=== PATIENT | male | born 1950 | race Caucasian/White ===

== ENCOUNTER 2018-07-12 10:33 | Day surgery (SDC) | payer MEDICARE, BC ==
[~2018-07-12 10:33] MED LIST: ACETAMINOPHEN 1,000 MG/100 ML BTL IV ONE
[2018-07-12] MEDS ORDERED: MIDAZOLAM HCL 2MG/2ML VIAL IV ONE (10:34)
[2018-07-12] MEDS ORDERED: BUPIVACAINE LIPOSOME/PF 133MG/10ML VIAL IV ONE (10:34)
[2018-07-12] MEDS ORDERED: NALOXONE 0.4 MG/1 ML VIAL IV ONE (10:34)
[2018-07-12] MEDS ORDERED: FENTANYL PF 100MCG/2ML VIAL IV ONE (10:34)
[2018-07-12] MEDS ORDERED: BUPIVACAINE 0.5% (5MG/ML) PF 30ML VIAL IVP ONE (10:34)
[2018-07-12] MEDS ORDERED: EPINEPHRINE 1 MG/ML AMPUL SQ ONE (10:34)
[2018-07-12] MEDS ORDERED: LIDOCAINE 2% MDV (20MG/ML) 20ML VIAL IV ONE (10:34)
[2018-07-12] MEDS ORDERED: ROCURONIUM BROMIDE 50MG/5ML VIAL IV ONE (10:34)
[2018-07-12] MEDS ORDERED: ONDANSETRON HCL IV 4 MG/2 ML VIAL IVP ONE (10:34)
[2018-07-12] MEDS ORDERED: SUCCINYLCHOLINE 20 MG/ML 10ML IVP ONE (10:34)
[2018-07-12] MEDS ORDERED: PROPOFOL 10 MG/ML VIAL IV ONE (10:34)
[2018-07-12] MEDS ORDERED: EPHEDRINE SULFATE 50 MG/ML ML IV ONE (10:34)
[2018-07-12] MEDS ORDERED: DEXAMETHASONE 4 MG/ML 1ML VIAL IVP ONE ×2 (10:34)
[2018-07-12] MEDS ORDERED: SEVOFLURANE 250 ML INH ONE (10:34)
[2018-07-12] MEDS ORDERED: KETOROLAC 30 MG/ML VIAL IVP ONE (10:34)
[2018-07-12] MEDS ORDERED: SUGAMMADEX SODIUM 200 MG/2 ML VIAL IV ONE (10:34)
[2018-07-12 10:57] LABS: BASO % 0.9 % (0-6); EOS % 4.1 % (0-6); GRAN % 59.3 % (47-80); HEMATOCRIT 51.4 % (42.0-52.0); HEMOGLOBIN 17.2 gm/dl (14.0-18.0); MEAN CELL VOLUME 92.4 fl (81-97); MEAN CORPUSCULAR HEMOGLOBIN 30.9 pg (27-33); MEAN CORPUSCULAR HGB CONC 33.5 g/dl (32-36); MEAN PLATELET VOLUME 9.1 fl (7.4-10.4); MONO % 8.7 % (0-9); PLATELET COUNT 257 K/uL (130-400); RED BLOOD COUNT 5.56 M/uL (4.40-5.70); RED CELL DISTRIBUTION WIDTH 13.1 % (11.5-14.5); WHITE BLOOD COUNT W/O DIFF 7.8 K/uL (4.2-12.2)
[2018-07-12 11:20] LABS: BLOOD UREA NITROGEN 22 mg/dL (8-23); CREATININE 0.8 mg/dL (0.7-1.2); EST GLOMERULAR FILTRATION RATE > 60 mL/min; GLUCOSE,RANDOM 105 mg/dL (74-109)
--- NOTE | 2018-07-18 09:01 | Operative Note ---
DATE OF SERVICE: 07/12/2018. DATE OF SURGERY: 07/12/2018. Surgeon: Jorge Mcintyre DO. REFERRING PHYSICIAN: Alberto Rolon DO. PREOPERATIVE DIAGNOSES: 1. Tear of the right rotator cuff. 2. Impingement syndrome, right shoulder. POSTOPERATIVE DIAGNOSES: 1. Tear of the right rotator cuff. 2. Impingement syndrome, right shoulder. 3. Tear/dislocation, right biceps tendon. OPERATION: 1. Arthroscopic repair of the right rotator cuff. 2. Arthroscopic subacromial decompression and acromioplasty, right shoulder. 3. Arthroscopic biceps tenotomy of the right shoulder. PROCEDURE: This 67-year-old male was taken to the operating room and placed in the supine position on the operating room table. General anesthesia was induced. He was placed in the beach chair position with all bony prominences well padded and head well secured. The right shoulder was prepped with Hibiclens and draped in the usual sterile fashion. An inferolateral portal was established with a 4 mm arthroscope, and initial evaluation of the joint demonstrated normal appearance of the glenohumeral joint articular cartilage. The labrum appeared to be normal. He had a partial tear of the subscapularis, but it was not detached. An anterior portal was established, and better viewing of the anterior structures was then accomplished. Glenohumeral ligaments appeared to be intact. However, he did have a markedly torn biceps tendon with fewer than 30% of the fibers still attached. It was also medially dislocated. The biceps was then released from its anchor on the superior aspect of the glenoid. The scope was then placed in the subacromial space, and thorough subacromial decompression and acromioplasty were performed. The margins of the rotator cuff tear of the supraspinatus were viewed from the inferior surface originally, but on the superior surface they were also easily identified. The ArthroCare wand was used to debride the tendon to healthy-appearing tendon. He did have retraction of the supraspinatus tendon, especially anteriorly, and we placed a #2 FiberWire from side to side in this location. We were able to free up the tendon medially, and slightly more elasticity was then noted. We were able to bring the cuff over to cover the humeral head and attach it to the tuberosity. This was accomplished by using a modification of the SpeedBridge technique by [employer]. This was performed by placing 2 swivel lock anchors adjacent to the articular cartilage, which had been medialized a distance of about 4 mm, and the sutures were then passed through the tendon to healthy-appearing tendon near the musculotendinous junction. An additional supporting horizontal mattress stitch was placed in between the fiber tapes. A single limb of each one of the 3 sutures was then passed through a 3rd swivel lock anchor, which was placed inferior to the anterior anchor, and traction was placed on the sutures to bring the cuff down to attach to the tuberosity. Once the appropriate traction had been applied, the anchor was impaled. The remaining 3 tails of suture were then placed through a 4th swivel lock anchor, and this anchor was then placed inferior to the posterior anchor, and again traction was placed on the sutures to bring them down to the anatomic footprint, and the anchor was impaled. The sutures were cut. The [id number] sutures were then tied for closure of the entire rotator cuff disruption. The wound was then irrigated and suctioned, and the portals were closed with 4-0 nylon suture, sterile dressings applied, and the patient taken to the recovery room in satisfactory condition. Gross pathology: Patient demonstrated a tear of the right rotator cuff with retraction of the supraspinatus, and marked tearing and medial dislocation of the biceps tendon was identified. AYSHA
== END 2018-07-12 14:00 | disposition home or self-care (01) ==
LOC: SUR 10:33
PROVIDERS: ATTEND Orthopaedic Surgery
DX: M75.101 Unspecified rotator cuff tear or rupture of right shoulder, not specified as traumatic (principal); S46.211A Strain of muscle, fascia and tendon of other parts of biceps, right arm, initial encounter; M75.41 Impingement syndrome of right shoulder; I10 Essential (primary) hypertension; E78.00 Pure hypercholesterolemia, unspecified; K44.9 Diaphragmatic hernia without obstruction or gangrene; Z87.442 Personal history of urinary calculi
CPT/HCPCS: 29827; 29826; 23405; 01630; 64418; 85025; 80048; 93005; 76942; J1885; J2405; J3010; J3490; C9290; J0171; J0330; J2310